=== PATIENT | female | born 2000 | race Caucasian/White ===

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

== ENCOUNTER 2020-08-12 20:21 | Emergency (ER) | payer OTHER ==
[~2020-08-12] VITALS: Ht 167.6 cm; Wt 108.9 kg
[~2020-08-12 20:21] MED LIST changes: +OMNICEF300 MG PO
== END 2020-08-12 22:07 | disposition home or self-care (01) ==
LOC: ED 20:21
DX: K08.89 Other specified disorders of teeth and supporting structures (principal); G43.909 Migraine, unspecified, not intractable, without status migrainosus; Z88.6 Allergy status to analgesic agent; Z79.2 Long term (current) use of antibiotics; Z79.899 Other long term (current) drug therapy

== ENCOUNTER 2020-09-22 21:43 | Inpatient (IN) | payer OTHER ==
[~2020-09-22] VITALS: Ht 167.6 cm; Wt 125.4 kg
[2020-09-22 21:57] VITALS: BP 117/78
[2020-09-22 22:06] VITALS: BP 125/61
[2020-09-22 22:08] LABS: BILIRUBIN Negative (Negative); BLOOD 2+ (Negative); CLARITY Cloudy (Clear); COLOR Yellow (Yellow); GLUCOSE Negative (Negative); KETONE Negative (Negative); LEUKO ESTERASE 3+ (Negative); NITRITE Positive (Negative); PH 5.5 (4.5-8.0); UROBILINOGEN 0.2 E.U./dl (0.0-1.0)
[2020-09-22 22:25] LABS: BACTERIA 2+; WBC 51-100 wbc/hpf (0-5)
[2020-09-22 22:35] LABS: BASO % 0.2 % (0.0-1.0); EOS # 0.3 10*3/uL (0.0-0.4); HEMATOCRIT 37.2 % (37.0-47.0); LYMPH # 2.9 10*3/uL (1.3-4.4); MEAN CORPUSCULAR HGB 26.9 pg (27.0-31.0); MEAN PLATELET VOLUME 9.9 fl (9.6-12.3); MONO % 8.2 % (3.0-9.0); NEUT # 8.4 10*3/uL (2.3-7.9); NEUT % 66.1 % (47.0-73.0); PLATELET COUNT AUTOMATED 393 10*3/uL (130-400); RED BLOOD COUNT 4.43 10*6/uL (4.10-5.10); RED CELL DISTRI WIDTH 13.1 % (0-14.5); WHITE BLOOD COUNT 12.7 10*3/uL (4.8-10.8)
[2020-09-22 22:48] LABS: ALBUMIN 2.9 gm/dl (3.1-4.5); ALKALINE PHOSPHATASE 119 U/L (45-117); BUN 7 mg/dl (7-24); CHLORIDE 110 mmol/L (98-107); CREATININE 0.96 mg/dL (0.55-1.02); POTASSIUM 3.1 mmol/L (3.5-5.1); SGOT/AST 14 IU/L (3-35); SGPT/ALT 35 U/L (12-78); SODIUM 142 mmol/L (136-145); TOTAL PROTEIN 6.8 gm/dL (6.4-8.2)
[2020-09-23 01:52] VITALS: BP 122/60
[2020-09-23 02:00] VITALS: BP 133/71
[2020-09-23] MEDS ORDERED: PROPRANOLOL HCL60 MG PO (02:22)
[2020-09-23] MEDS ORDERED: VRAYLAR4.5 MG PO (02:22)
[2020-09-23] MEDS ORDERED: MINIPRESS2 M1 PO (02:24)
[2020-09-23 06:23] LABS: BASO # 0.1 10*3/uL (0.0-0.1); BASO % 0.4 % (0.0-1.0); EOS # 0.2 10*3/uL (0.0-0.4); EOS % 1.4 % (1.0-4.0); HEMATOCRIT 34.7 % (37.0-47.0); LYMPH # 3.1 10*3/uL (1.3-4.4); LYMPH % 24.6 % (27.0-41.0); MEAN CORPUSCULAR HGB 26.6 pg (27.0-31.0); MEAN CORPUSCULAR HGB CONC 31.7 g/dl (33.0-37.0); MEAN PLATELET VOLUME 10.2 fl (9.6-12.3); MONO # 1.3 10*3/uL (0.1-1.0); MONO % 10.2 % (3.0-9.0); NEUT # 7.9 10*3/uL (2.3-7.9); PLATELET COUNT AUTOMATED 351 10*3/uL (130-400); RED BLOOD COUNT 4.13 10*6/uL (4.10-5.10); RED CELL DISTRI WIDTH 13.3 % (0-14.5); WHITE BLOOD COUNT 12.5 10*3/uL (4.8-10.8)
[2020-09-23 06:29] LABS: BUN 6 mg/dl (7-24); CHLORIDE 112 mmol/L (98-107); POTASSIUM 3.2 mmol/L (3.5-5.1); SODIUM 142 mmol/L (136-145)
[2020-09-23 08:00] VITALS: BP 119/57
[2020-09-23 12:00] VITALS: BP 123/65
[2020-09-23 16:00] VITALS: BP 120/71
[2020-09-23 20:00] VITALS: BP 128/54
[2020-09-24] VITALS: BP 124/50
[2020-09-24 06:23] LABS: BASO # 0.1 10*3/uL (0.0-0.1); BASO % 0.5 % (0.0-1.0); EOS # 0.3 10*3/uL (0.0-0.4); EOS % 3.4 % (1.0-4.0); HEMATOCRIT 34.8 % (37.0-47.0); LYMPH # 3.1 10*3/uL (1.3-4.4); LYMPH % 33.7 % (27.0-41.0); MEAN CELL VOLUME 84.7 fl (81.0-99.0); MEAN CORPUSCULAR HGB 26.5 pg (27.0-31.0); MEAN CORPUSCULAR HGB CONC 31.3 g/dl (33.0-37.0); MEAN PLATELET VOLUME 10.4 fl (9.6-12.3); MONO # 0.8 10*3/uL (0.1-1.0); MONO % 8.8 % (3.0-9.0); NEUT # 4.9 10*3/uL (2.3-7.9); NEUT % 53.1 % (47.0-73.0); PLATELET COUNT AUTOMATED 329 10*3/uL (130-400); RED BLOOD COUNT 4.11 10*6/uL (4.10-5.10); RED CELL DISTRI WIDTH 13.4 % (0-14.5); WHITE BLOOD COUNT 9.2 10*3/uL (4.8-10.8)
[2020-09-24 06:54] LABS: BUN 7 mg/dl (7-24); CHLORIDE 112 mmol/L (98-107); CREATININE 0.63 mg/dL (0.55-1.02); FREE T4 1.21 ng/dl (0.76-1.46); POTASSIUM 3.7 mmol/L (3.5-5.1); SODIUM 142 mmol/L (136-145)
[2020-09-24 07:39] LABS: VITAMIN D, 25-HYDROXY 9.8 ng/mL (30-100)
[2020-09-24 08:00] VITALS: BP 112/60
[2020-09-24 12:00] VITALS: BP 116/64
[2020-09-24 16:00] VITALS: BP 119/62
[2020-09-24 20:00] VITALS: BP 110/60
[2020-09-25] VITALS: BP 123/63
[2020-09-25 08:00] VITALS: BP 115/62
[2020-09-25 12:00] VITALS: BP 114/63
[2020-09-25 16:00] VITALS: BP 110/75
[2020-09-25 20:00] VITALS: BP 109/38
[2020-09-25 23:38] VITALS: BP 100/59
[2020-09-26 08:00] VITALS: BP 120/69
[2020-09-26] MEDS ORDERED: VITAMIN D3125 MCG PO (11:11)
[2020-09-26] MEDS ORDERED: AUGMENTIN 875-875 MG PO (11:11)
[2020-09-26 12:00] VITALS: BP 124/69
== END 2020-09-26 13:50 | disposition home or self-care (01) | DRG 720 ==
LOC: ED 21:43 → EDHOLD 09-23 01:31 → 5E 09-23 01:31
PROVIDERS: Emergency Medicine; Internal Medicine; Registered Nurse; ADMIT Internal Medicine; ATTEND Internal Medicine
DX: A41.51 Sepsis due to Escherichia coli [E. coli] (principal); N39.0 Urinary tract infection, site not specified; D50.9 Iron deficiency anemia, unspecified; E87.8 Other disorders of electrolyte and fluid balance, not elsewhere classified; E44.0 Moderate protein-calorie malnutrition; F31.9 Bipolar disorder, unspecified; R65.20 Severe sepsis without septic shock; E87.6 Hypokalemia; F51.4 Sleep terrors [night terrors]; I10 Essential (primary) hypertension; E66.9 Obesity, unspecified; F25.9 Schizoaffective disorder, unspecified; K76.0 Fatty (change of) liver, not elsewhere classified; B96.20 Unspecified Escherichia coli [E. coli] as the cause of diseases classified elsewhere; E55.9 Vitamin D deficiency, unspecified; E86.0 Dehydration; Z88.6 Allergy status to analgesic agent; Z81.8 Family history of other mental and behavioral disorders; Z82.0 Family history of epilepsy and other diseases of the nervous system; Z84.89 Family history of other specified conditions; Z79.899 Other long term (current) drug therapy; Z68.41 Body mass index [BMI] 40.0-44.9, adult

== ENCOUNTER → 2021-01-27 | Outpatient (CLI) | payer OTHER ==
[~2021-01-27] MED LIST changes: +AUGMENTIN 875-875 MG PO; +MINIPRESS2 M1 PO; +PROPRANOLOL HCL60 MG PO; +VITAMIN D3125 MCG PO; +VRAYLAR4.5 MG PO
[2021-01-27 13:28] LABS: BILIRUBIN Negative (Negative); BLOOD Negative (Negative); CLARITY Cloudy (Clear); COLOR Yellow (Yellow); GLUCOSE Negative (Negative); KETONE Negative (Negative); LEUKO ESTERASE 2+ (Negative); NITRITE Negative (Negative); PH 5.5 (4.5-8.0); SPECIFIC GRAVITY 1.025 (1.001-1.030)
[2021-01-27 13:50] LABS: WBC 16-20 wbc/hpf (0-5)
[2021-01-27 13:51] LABS: BACTERIA TRACE
== END | disposition home or self-care (01) ==
LOC: LAB 13:06
PROVIDERS: Nurse Practitioner Family; ATTEND Nurse Practitioner Women's Health
DX: N91.1 Secondary amenorrhea (principal); R30.0 Dysuria